=== PATIENT | female | born 1985 | race African-American/Black ===

== ENCOUNTER 2016-08-26 03:21 | Inpatient (IN) | payer MEDICAID ==
[~2016-08-26 03:21] MED LIST: AMOXICILLIN500 MG PO; APAP325 M1 PO; CATAFLAM50 MG PO; COLACE100 MG PO; IBUPROFEN800 MG PO; LABETALOL HCL200 MG PO; MIRALAX17 G1 PO; NORCO 10/325 TA1 TAB PO; PERCOCET 5/3251 TAB PO; PRENATAL PLUS T1 TA PO; PRENATAL1 EACH; PRENATAL1 EACH PO; ZANTAC 7575 MG; ZOFRAN ODT4 MG PO; ZOFRAN4 M2 PO
[2016-08-26] MEDS ORDERED: RANITIDINE HCL150 M3 PO (03:59)
[2016-08-26] MEDS ORDERED: ULTRAM50 M1 PO (04:00)
[2016-08-26] MEDS ORDERED: PRENATAL FORMU1 EAC4 PO (04:01)
[2016-08-26 05:30] LABS: BASO % 0.1 % (0-2); EOS % 0.1 % (0-7); HCT-HEMATOCRIT 33.9 % (34.0-49.0); HGB-HEMOGLOBIN 11.7 gm/dl (12.0-15.5); IMMATURE GRANULOCYTES ABSOLUTE 0.04 tho/cmm (0-0.03); IMMATURE GRANULOCYTES PERCENT 0.5 % (0-0.3); LYMPH % 15.1 % (20-45); LYMPH ABSOLUTE COUNT 1.3 tho/cmm (0.8-4.5); MCH (MEAN CORPUSCULAR HGB) 29.3 pg (28.0-32.0); MCHC MEAN CORPUSCULAR HGB CONC 34.5 % (32.0-36.0); MCV (MEAN CELL VOLUME) 84.8 fl (82.0-96.0); MEAN PLATELET VOLUME 11.5 cmc (9.4-12.4); MONOCYTE ABSOLUTE COUNT 0.4 tho/cmm (0.0-1.2); NEUTROPHIL ABSOLUTE COUNT 6.6 tho/cmm (1.6-8.0); NEUTROPHIL-AUTOMATED 6.6 tho/cmm (1.6-8.0); NEUTROPHILS % 79.2 % (40-80); PLATELET COUNT 197 tho/cmm (150-450); RED CELL DISTRIBUTION WIDTH 14.7 % (12.4-16.4); WHITE BLOOD COUNT 8.4 tho/cmm (4.0-10.0)
[2016-08-26 11:29] LABS: CORD BLOOD PH ARTERIAL 7.3 Units (7.18-7.38)
[2016-08-27 13:20] LABS: RED CELL DISTRIBUTION WIDTH 15.1 % (12.4-16.4)
[2016-08-30] MEDS ORDERED: IBUPROFEN800 M1 PO (09:43)
[2016-08-30] MEDS ORDERED: PERCOCET 5-3251 EACH PO (09:44)
[2017-01-08] MEDS ORDERED: KEFLEX500 M4 PO (04:13)
== END 2016-08-30 15:25 | DRG 766 ==
LOC: LDR 03:21 → OBGE 12:34
PROVIDERS: Obstetrics & Gynecology; ADMIT Obstetrics & Gynecology
PROC: 10D00Z1 Extraction of Products of Conception, Low, Open Approach (ICD-10-PCS; principal; 2016-08-26)
PROC: 10907ZC Drainage of Amniotic Fluid, Therapeutic from Products of Conception, Via Natural or Artificial Opening (ICD-10-PCS; 2016-08-26)
DX: O24.410 Gestational diabetes mellitus in pregnancy, diet controlled (principal); O33.9 Maternal care for disproportion, unspecified; O34.211 Maternal care for low transverse scar from previous cesarean delivery; O69.2XX0 Labor and delivery complicated by other cord entanglement, with compression, not applicable or unspecified; O77.0 Labor and delivery complicated by meconium in amniotic fluid; O66.41 Failed attempted vaginal birth after previous cesarean delivery; O76 Abnormality in fetal heart rate and rhythm complicating labor and delivery; Z37.0 Single live birth; Z3A.39 39 weeks gestation of pregnancy
CPT/HCPCS: J0690; J1170; J1200; J2270; J2370; J2590; J2795; J7121